=== PATIENT | female | born 1970 | race Caucasian/White ===

== ENCOUNTER 2017-05-10 09:00 | Emergency (ER) | payer OTHER ==
--- NOTE | 2017-05-10 09:18 | CPEKG ---
Heart Rate: 67 RR Interval: 896 P-R Interval: 144 QRSD Interval: 94 QT Interval: 404 QTC Interval: 427 P Taylor: 67 QRS Taylor: 85 T Wave Taylor: 49 EKG Severity - NORMAL ECG - EKG Impression: SINUS RHYTHM Electronically Signed By: Lenin Urban 10-May-2017 10:16:49
[2017-05-10] MEDS ORDERED: ASPIRIN 81 MG CHEWABLE TAB PO ONE (09:22)
[2017-05-10 09:30] LABS: % IMMATURE GRANULYOCYTES 0.2 % (0.0-1.1); ABSOLUTE IMMATURE GRANULOCYTES 0.02 10^3/uL (0.00-0.10); ADD DIFF? NO; ADD MORPH? NO; ADD SCAN? NO; ATYPICAL LYMPHOCYTE FLAG 30 (0-99); FRAGMENT RBC FLAG 0 (0-99); HEMATOCRIT 43.4 % (38.0-47.0); HEMOGLOBIN 14.8 g/dL (12.6-16.3); LEFT SHIFT FLG 0 (0-99); LIPEMIA HEMOLYSIS FLAG 90 (0-99); MEAN CELL HEMOGLOBIN 31.2 pg (27.9-34.1); MEAN CELL HEMOGLOBIN CONCENTR. 34.1 g/dL (32.4-36.7); MEAN CELL VOLUME 91.6 fL (81.5-99.8); MEAN PLATELET VOLUME 9.4 fL (8.7-11.7); PLATELET CLUMPS FLAG 0 (0-99); PLATELET COUNT 332 10^3/uL (150-400); RED BLOOD CELL COUNT 4.74 10^6/uL (4.18-5.33); RED CELL DISTRIBUTION WIDTH 13.2 % (11.5-15.2)
--- NOTE | 2017-05-10 09:35 | EDPHY ---
H & P Time Seen by Provider: 05/10/17 09:07 HPI/ROS: CHIEF COMPLAINT: Chest tightness HISTORY OF PRESENT ILLNESS: Patient is a history of hypercholesterolemia and a family history of coronary disease in her father and aunt in their 50s. She is training for a marathon and runs regularly. She had symptoms after run about a week ago and then again this Tuesday. She went for a 7 mi run in the afternoon, felt normal, and then during the nighttime woke up with chest tightness and some nausea with a little bit of left arm tingling which lasted 30 minutes and then went away. It happened again yesterday similar, and then she was awakened in the middle of the night last night around 1 or 2 in the morning with 45 minutes of the same symptoms. Currently she just has a little bit of tingling in her left arm. She has a little bit of shortness of breath but was able to run a mi today without any trouble. REVIEW OF SYSTEMS: Eye: no change in vision ENT: no sore throat Cardiac: HPI Pulmonary: No coughing or hemoptysis Abdomen: no vomiting, diarrhea, abdominal pain Musculoskeletal: no back pain or leg swelling Skin: no rash Neuro: no headache Constitutional: no fever : no urinary symptoms A comprehensive 10 point review of systems is otherwise negative aside from elements mentioned in the history of present illness. PAST MEDICAL HISTORY: Thyroid and hypercholesterolemia. Social history: Nonsmoker, no cocaine General Appearance: Alert and conversant, cooperative. Eyes: No scleral icterus. ENT, Mouth: Normal mucous membranes. Respiratory: Normal respiratory effort, breath sounds equal, lungs are clear to auscultation. Cardiovascular: Regular rate and rhythm. Gastrointestinal: Abdomen is soft and non tender. Neurological: Alert and oriented x3. Normally conversant. Face symmetric, normal movement and sensation in all extremities. Skin: Warm and dry, no rashes. Musculoskeletal: No calf tenderness. Psychiatric: Not agitated. Emergency Department course/MDM: EKG shows no acute ST changes. Oral aspirin, chest x-ray, troponin and D- dimer. Low pretest probability for pulmonary embolism. Patient was seen in the emergency department by on-call [facility] hair spinner Dr. Lake who discharged her to his office for provocative stress testing. Smoking Status: Never smoked Constitutional: Initial Vital Signs Temperature (C) 36.8 C 05/10/17 09:02 Heart Rate 70 05/10/17 09:02 Respiratory Rate 16 05/10/17 09:02 Blood Pressure 137/88 H 05/10/17 09:02 O2 Sat (%) 97 05/10/17 09:02 O2 Delivery Mode Room Air Allergies/Adverse Reactions: No Known Allergies Allergy (Verified 05/10/17 09:06) Home Medications: Medication Instructions Recorded Levothyroxine 05/10/17 Medical Decision Making - Diagnostics EKG Interpretation: 12-lead EKG interpreted by me; official reading is in trace master. My interpretation is sinus rhythm rate 67 no acute ischemic changes. Differential Diagnosis: Differential diagnosis considered for chest pain including but not limited to myocardial ischemia, aortic dissection, pericarditis, pulmonary embolus, chest wall pain, pleural inflammation and pulmonary infectious causes. Consult/Admit Bed Type: [facility] cardiology 1015 - Data Points Laboratory Results: Laboratory Results 05/10/17 09:15 05/10/17 09:15 05/10/17 05/10/17 05/10/17 09:15 09:15 09:15 WBC RBC Hgb Hct MCV MCH MCHC RDW Plt Count MPV Neut % (Auto) Lymph % (Auto) Gem % (Auto) Eos % (Auto) Baso % (Auto) Nucleat RBC Rel Count Absolute Neuts (auto) Absolute Lymphs (auto) Absolute Monos (auto) Absolute Eos (auto) Absolute Basos (auto) Absolute Nucleated RBC Immature Gran % Immature Gran # D-Dimer < 0.27 ug/mLFEU ug/mLFEU (0.00-0.50) Sodium 144 mEq/L mEq/L (134-144) Potassium 4.5 mEq/L mEq/L (3.5-5.2) Chloride 106 mEq/L mEq/L (97-110) Carbon Dioxide 23 mEq/l mEq/l (22-31) Anion Gap 15 mEq/L mEq/L (8-16) BUN 13 mg/dL mg/dL (7-23) Creatinine 0.8 mg/dL mg/dL (0.6-1.0) Estimated GFR > 60 Glucose 82 mg/dL mg/dL (70-100) Calcium 9.7 mg/dL mg/dL (8.5-10.4) Troponin I < 0.012 ng/mL ng/mL (0-0.034) Beta HCG, Qual NEGATIVE 05/10/17 09:15 WBC 8.41 10^3/uL 10^3/uL (3.80-9.50) RBC 4.74 10^6/uL 10^6/uL (4.18-5.33) Hgb 14.8 g/dL g/dL (12.6-16.3) Hct 43.4 % % (38.0-47.0) MCV 91.6 fL fL (81.5-99.8) MCH 31.2 pg pg (27.9-34.1) MCHC 34.1 g/dL g/dL (32.4-36.7) RDW 13.2 % % (11.5-15.2) Plt Count 332 10^3/uL 10^3/uL (150-400) MPV 9.4 fL fL (8.7-11.7) Neut % (Auto) 64.8 % % (39.3-74.2) Lymph % (Auto) 23.8 % % (15.0-45.0) Gem % (Auto) 7.0 % % (4.5-13.0) Eos % (Auto) 3.2 % % (0.6-7.6) Baso % (Auto) 1.0 % % (0.3-1.7) Nucleat RBC Rel Count 0.0 % % (0.0-0.2) Absolute Neuts (auto) 5.45 10^3/uL 10^3/uL (1.70-6.50) Absolute Lymphs (auto) 2.00 10^3/uL 10^3/uL (1.00-3.00) Absolute Monos (auto) 0.59 10^3/uL 10^3/uL (0.30-0.80) Absolute Eos (auto) 0.27 10^3/uL 10^3/uL (0.03-0.40) Absolute Basos (auto) 0.08 10^3/uL 10^3/uL (0.02-0.10) Absolute Nucleated RBC 0.00 10^3/uL 10^3/uL (0-0.01) Immature Gran % 0.2 % % (0.0-1.1) Immature Gran # 0.02 10^3/uL 10^3/uL (0.00-0.10) D-Dimer Sodium Potassium Chloride Carbon Dioxide Anion Gap BUN Creatinine Estimated GFR Glucose Calcium Troponin I Beta HCG, Qual Medications Given: Discontinued Medications Aspirin (Aspirin) 324 mg PO EDNOW ONE Stop: 05/10/17 09:23 Last Admin: 05/10/17 09:42 Dose: 324 mg Departure - Departure Disposition: Home, Routine, Self-Care Clinical Impression: Chest pain Qualifiers: Chest pain type: unspecified Qualified Code(s): R07.9 - Chest pain, unspecified Condition: Good Instructions: Chest Pain (ED) Referrals: Ronit Ortiz MD [Primary Care Provider] - As per Instructions Bairon Lake MD [Medical Doctor] - As per Instructions
[2017-05-10 09:38] LABS: ANION GAP 15 mEq/L (8-16); CALCIUM 9.7 mg/dL (8.5-10.4); CARBON DIOXIDE 23 mEq/l (22-31); CHLORIDE 106 mEq/L (97-110); CREATININE 0.8 mg/dL (0.6-1.0); GLOMERULAR FILTRATION RATE > 60; GLUCOSE 82 mg/dL (70-100); POTASSIUM 4.5 mEq/L (3.5-5.2); SODIUM 144 mEq/L (134-144)
[2017-05-10 09:50] LABS: TROPONIN I < 0.012 ng/mL (0-0.034)
[2017-05-10 11:52] VITALS: BP 119/77; PULSE 55; RESP 18; TEMP 97.9; O2SAT 94
--- NOTE | 2017-05-10 19:32 | GCON ---
[f rep st] CONSULTATION CARDIOLOGY CONSULTATION DATE OF CONSULTATION: 05/10/2017 REASON FOR CONSULTATION: Chest discomfort. HISTORY OF PRESENT ILLNESS: This patient is a pleasant 46-year-old female with a past medical history of hypothyroidism and borderline hyperlipidemia, who was in her usual state of health until the past 10 days when she began to develop episodes of substernal chest tightness and pressure. She describes her chest tightness and pressure as substernal, nonradiating, lasting for several hours and occasionally associated with some nausea and diaphoresis. Her symptoms are nonexertional. She denies any associated palpitations, dizziness, lightheadedness, near syncope, or syncope. The patient has been training for a half marathon next month. She has been doing 7 mile runs several days a week. She has no exertional symptoms. She denies any exertional intolerance, fatigue, exertional chest pain, exertional chest pressure, dyspnea on exertion, palpitations near syncope or syncope. The patient denies any recent upper respiratory infections or febrile illness. She thinks she may have had a mild touch of a gastrointestinal bug that her preschool aged son had over the previous weekend. She denies any pleuritic or respiratory phasic chest discomfort. She denies any history of recent long plane rides or car rides. She has no evidence of lower extremity edema. Her D- dimer is negative at 0.27. Currently, at the time of my exam, she is resting comfortably, without complaint. REVIEW OF SYSTEMS: A 10-point review of systems is negative, except for those outlined above. PAST MEDICAL HISTORY: 1. Hypothyroidism. 2. Borderline hyperlipidemia. MEDICATIONS ON ADMISSION: Include levothyroxine, uncertain of dose. ALLERGIES: None. SOCIAL HISTORY: She is . She lives with her . She has 5 children. She is a lifelong nonsmoker. She does not drink alcohol. She does not use illicit drugs. She does not use marijuana. FAMILY HISTORY: Her father had a myocardial infarction in his early 60s. Her paternal aunt had a myocardial infarction in her 50s. She has siblings with no known history of heart disease. Her mother is alive and well, with no known history of heart disease. PHYSICAL EXAMINATION: VITAL SIGNS: Blood pressure 137/88, heart rate of 70 in sinus rhythm, respiratory rate of 16, oxygen saturation 97% on room air, temperature after 36.8. GENERAL: She is awake, alert, oriented and appropriate , in no apparent distress. She is physically fit and healthy-appearing. NECK: There is no evidence of JVP or carotid bruits. LUNGS: Clear to auscultation bilaterally. CARDIAC: S1, S2. Regular rate and rhythm. No murmurs, rubs, or gallops. ABDOMEN: Soft, nontender, nondistended. There is no pulsatile mass or abdominal bruit. EXTREMITIES: She has no evidence of cyanosis, clubbing or edema. She has 2+ dorsalis pedis and posterior tibial pulses bilaterally. LAB WORK: White blood cell count 8.41, hemoglobin 14.8, hematocrit 43.4, platelet count 332. D-dimer is normal at less than 0.27. Sodium 144, potassium 4.5, chloride 106, bicarb 23, BUN 13, creatinine 0.8, glucose 82. Troponin less than 0.012. Beta HCG is negative. IMAGING: EKG demonstrates normal sinus rhythm, with normal intervals and normal axis at 67 beats per minute. IMPRESSION: Atypical chest tightness. This patient is a 46-year-old female who is physically active and can run 7 miles on a regular basis without any exertional symptoms. She presents with a 10-day history of intermittent episodes of substernal chest tightness and pressure that occur at rest. It lasts for hours, associated with some mild nausea and diaphoresis. Her EKG is normal. Her troponin is normal. I think that she is safe for discharge from the emergency department with outpatient further risk stratification. Cardiac risk factors include family history of premature coronary artery disease. She has borderline hyperlipidemia , per her report. The values are not available for me at this time. I would recommend that she be discharged from the emergency department and present directly to my office for exercise treadmill stress test to be done this afternoon. Will also arrange for complete 2D echocardiogram to be done tomorrow in my office as well. Will arrange for outpatient consultation in my office. After completion of exercise treadmill stress test and complete 2D echocardiogram. PLAN: 1. The patient is to be discharged to the [facility] Cardiology Department for outpatient exercise treadmill stress test. 2. Arrange for outpatient complete 2D echocardiogram to be performed in my office on Tuesday, May 11, 2017. 3. Follow up with me in the office after completion of the above workup. 4. I have discussed my findings with Dr. Lenin Urban, who will arrange for discharge from the emergency department. 40 minutes spent coordinating care /[id number]/MODL MTDD
== END 2017-05-10 11:53 | disposition home or self-care (01) ==
DX: R07.9 Chest pain, unspecified (principal)

== ENCOUNTER → 2018-02-14 | Outpatient (CLI) | payer OTHER | LOC: BMCIMAGING 07:43 | PROVIDERS: ATTEND Internal Medicine | DX: Z12.31 Encounter for screening mammogram for malignant neoplasm of breast (principal) ==

== ENCOUNTER → 2018-02-27 | Outpatient (CLI) | payer OTHER | LOC: BMCIMAGING 09:48 | PROVIDERS: ATTEND Internal Medicine | DX: R92.0 Mammographic microcalcification found on diagnostic imaging of breast (principal) ==

== ENCOUNTER → 2018-09-05 | Outpatient (CLI) | payer OTHER | LOC: BMCIMAGING 10:50 | PROVIDERS: ATTEND Internal Medicine | DX: R92.1 Mammographic calcification found on diagnostic imaging of breast (principal) ==

== ENCOUNTER → 2019-03-16 | Outpatient (CLI) | payer OTHER | LOC: BMCIMAGING 09:46 ==